=== PATIENT | male | born 1950 | race Two or more races ===

== ENCOUNTER 2025-03-28 17:30 | Emergency (ER) | payer OTHER, MEDICAID, SELFPAY ==
[2025-03-28 17:34] VITALS: BP 167/92; PULSE 104; RESP 18; TEMP 37.1; O2SAT 95
[2025-03-28 17:40] VITALS: PULSE 102; O2SAT 95; BMI 34.1
--- NOTE | 2025-03-28 18:16 | PC.NURSE ---
Patient signed out AMA, Dr. Krueger spoke with patient as well as myself regarding leaving against medical advice, patient states i want to leave, i don't feel bad, if I feel bad I'll go to [place], cosequences explained, including possible . Patient alert and oriented x 3, verbalizes understanding, patients friend Patti with patient at bedside, ama form signed and placed on chart.
--- NOTE | 2025-03-28 18:17 | EDNOTE_ITS ---
ED Fall Injury RME/HPI General Chief Complaint: Fall Stated Complaint: FALL Time Seen by Provider: 03/28/25 18:08 Arrival date/time: 03/28/25 17:30 RME / HPI RME / HPI Narrative: Dr. Krueger's Main ED Evaluation: Patient is a 75-year-old male on Eliquis. Approximately an hour and 10 minutes prior to my evaluation the [place] using his walker. He fell onto a carpeted floor and hit the back of his head with a subsequent hematoma. Patient denies headache. Denies neck pain. No alteration of mental status. He wishes to leave the hospital immediately because he wants to go home because he just got recently discharged from the hospital. He is here in the emergency room with his . Both are fully alert and oriented. ED Exam Narrative Physical exam: Generally patient is alert and oriented x 4 no obvious distress head shows cephalhematoma to the posterior aspect of the head, neck shows no midline tenderness and nontender to head compression, heart regular rate and rhythm, lungs clear to auscultation equal bilaterally, abdomen soft bowel sounds present's and nontender, neurologic exam [place] Coma Scale is 15 Course Quality Measures none Vital Signs Vital signs: Vital Signs Temperature 98.8 F 03/28/25 17:34 Pulse Rate 104 H 03/28/25 17:34 Respiratory Rate 18 03/28/25 17:34 Blood Pressure 167/92 H 03/28/25 17:34 Pulse Oximetry (%) 95 03/28/25 17:34 Oxygen Delivery Method Room Air 03/28/25 17:34 Fall MDM Narrative [facility] Narrative:: Patient is adamant that he wants to leave immediately because he is tired of being in the hospital. I thoroughly went over the fact with the patient and his that I am concerned about intracerebral injury despite the fact not having headache or alteration of mental status. He is on Eliquis with a cephalhematoma and the standard of care for treatment is to obtain a CAT scan of the brain. Patient thoroughly refuses the CAT scan of the brain. He has the capacity to make this decision. He is fully alert and oriented x 4. His also agrees with the decision. Strict return precautions were given to the patient and his such as increasing headache or alteration of mental status he is to return immediately to the emergency room. He is not to go to sleep until approximately 4 hours after the incident to assure that he is not going to have alteration in mental status or worsening headache. He understands these risks of decompensation including as does his . He is able to verbalize those risks. Patient signed AGAINST MEDICAL ADVICE form. Patient data External records reviewed:: Other (specify) Clinical information provided by:: none Social determinants that could affect healthcare access:: none Patient has the following chronic illnesses:: None How is presenting disease/condition affected by chronic disease/condition?: no chronic disease Evaluation data The following diagnostics were reviewed and interpreted by me:: other (specify) Lab and/or radiology exams considered but not ordered:: None Interpretation Summary: None Medications / Prescriptions Medications or Prescriptions considered but not ordered:: None Medication administrations:: None Consultations Consultation(s) initiated? (list below): No Diagnosis Fall Differential Diagnosis: other Most likely diagnosis given after review of the tests above:: On Admission Indicated Admission indicated?: not indicated Admission Request Was there a request for admission?: No Disposition Plan Disposition Plan: other (specify) Discharge Plan Plan Patient Disposition: Left Against Medical Advice Problem List Clinical Impression: Fall, Blunt head trauma, Cephalohaematoma, Coagulopathy Patient/Caregiver Discharge Instructions Additional Instructions: Patient is to return for any increasing headache or alteration of mental status. Print Language: Chinese
--- NOTE | 2025-03-28 18:17 | PD.EDFALL ---
ED Fall Injury RME/HPI General Chief Complaint: Fall Stated Complaint: FALL Time Seen by Provider: 03/28/25 18:08 Arrival date/time: 03/28/25 17:30 RME / HPI RME / HPI Narrative: Dr. Krueger's Main ED Evaluation: 75yo male with a history of aFib on Eliquis, HTN BIBA from the [facility] presents to the ED for a fall. Patient accidentally tripped over his walker and fell backwards, hitting the back of his head. Family at bedside denies loss of consciousness. Patient denies any neck pain, chest pain, abdominal pain, extremity pain, or any other associated symptoms. Patient states he wants to leave and does not want any work-up done at this time. Review of Systems Review of Systems Systems Reviewed: All systems reviewed, normal except as documented Past Medical History Past Medical History CARDIAC: Positive Atrial Fibrillation and Hypertension; Negative Congestive Heart Failure RESPIRATORY: Negative Chronic Obstructive Pulmonary Disease (COPD) GENITOURINARY: Negative Renal Disease ENDOCRINE: Negative Diabetes Mellitus Type 1 or Diabetes Mellitus Type 2 Social History SMOKING STATUS: Light (< 1 pack/day) Course Quality Measures none Vital Signs Vital signs: Vital Signs Temperature 98.8 F 03/28/25 17:34 Pulse Rate 104 H 03/28/25 17:34 Respiratory Rate 18 03/28/25 17:34 Blood Pressure 167/92 H 03/28/25 17:34 Pulse Oximetry (%) 95 03/28/25 17:34 Oxygen Delivery Method Room Air 03/28/25 17:34 Fall MDM Narrative MDM Narrative:: Scribe Attestation: 03/28/25 Isabel Ralph am scribing for and in the presence of Dr. Krueger. Patient data External records reviewed:: [facility] previous records (Per chart review, patient has no previous ED visits or admissions to this facility.) and EMS form Clinical information provided by:: patient and family Social determinants that could affect healthcare access:: none Patient has the following chronic illnesses:: aFib on Eliquis, HTN How is presenting disease/condition affected by chronic disease/condition?: uneffected by Evaluation data The following diagnostics were reviewed and interpreted by me:: other (specify) (none) Lab and/or radiology exams considered but not ordered:: CT head considered, but the patient declined. Interpretation Summary: none Medications / Prescriptions Medications or Prescriptions considered but not ordered:: none Medication administrations:: none Consultations Consultation(s) initiated? (list below): No Diagnosis Fall Differential Diagnosis: other (See MDM) Most likely diagnosis given after review of the tests above:: see clinical impression below Admission Indicated Admission indicated?: not indicated Admission Request Was there a request for admission?: No Disposition Plan Disposition Plan: other (specify) (Patient signed out against medical advice.) Discharge Plan Plan Patient Disposition: Left Against Medical Advice Problem List Clinical Impression: Fall, Blunt head trauma, Cephalohaematoma, Coagulopathy Patient/Caregiver Discharge Instructions Additional Instructions: Patient is to return for any increasing headache or alteration of mental status. Print Language: Welsh
== END 2025-03-28 18:16 | disposition left against medical advice (07) ==
LOC: SERX 18:34
PROVIDERS: Emergency Provider Emergency Medicine
DX: S00.03XA Contusion of scalp, initial encounter (principal); D68.9 Coagulation defect, unspecified; W18.39XA Other fall on same level, initial encounter; Z53.29 Procedure and treatment not carried out because of patient's decision for other reasons
CPT/HCPCS: 99281